=== PATIENT | female | born 1980 | race African-American/Black ===

== ENCOUNTER 2017-04-02 16:15 | Observation (INO) | payer SELFPAY ==
[2017-04-02 18:11] LABS: COLOR PALE YELLOW; LEUKOCYTE ESTERASE,URINE NEGATIVE (NEGATIVE); NITRITE,URINE NEGATIVE (NEGATIVE)
[2017-04-02 18:32] LABS: PHENCYCLIDINE URINE BCH < 6 ng/ml (NEGATIVE); PHENCYCLIDINE URINE BCH NEGATIVE (NEGATIVE); TETRAHYDROCANNABINOL URINE 75 ng/mL (NEGATIVE)
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
== END 2017-04-02 19:21 | disposition home or self-care (01) ==
LOC: FLD 16:15
PROVIDERS: ADMIT Obstetrics & Gynecology; ATTEND Obstetrics & Gynecology
DX: O26.893 Other specified pregnancy related conditions, third trimester (principal); Z3A.38 38 weeks gestation of pregnancy
CPT/HCPCS: 80307; G0378; G0480

== ENCOUNTER 2017-04-11 08:22 | Inpatient (IN) | payer MEDICAID ==
[2017-04-11 10:27] LABS: % IMMATURE GRANULYOCYTES 0.3 % (0.0-1.1); ABSOLUTE IMMATURE GRANULOCYTES 0.02 10^3/uL (0.00-0.10); ADD DIFF? NO; ADD MORPH? NO; ADD SCAN? NO; ATYPICAL LYMPHOCYTE FLAG 0 (0-99); FRAGMENT RBC FLAG 0 (0-99); HEMATOCRIT 32.1 % (38.0-47.0); HEMOGLOBIN 11.2 g/dL (12.6-16.3); LEFT SHIFT FLG 0 (0-99); LIPEMIA HEMOLYSIS FLAG 90 (0-99); MEAN CELL HEMOGLOBIN 28.6 pg (27.9-34.1); MEAN CELL HEMOGLOBIN CONCENTR. 34.9 g/dL (32.4-36.7); MEAN CELL VOLUME 81.9 fL (81.5-99.8); MEAN PLATELET VOLUME 12.5 fL (8.7-11.7); PLATELET CLUMPS FLAG 0 (0-99); PLATELET COUNT 137 10^3/uL (150-400); RED BLOOD CELL COUNT 3.92 10^6/uL (4.18-5.33); RED CELL DISTRIBUTION WIDTH 13.4 % (11.5-15.2)
[2017-04-11 10:59] LABS: PHENCYCLIDINE URINE BCH < 6 ng/ml (NEGATIVE); PHENCYCLIDINE URINE BCH NEGATIVE (NEGATIVE); TETRAHYDROCANNABINOL URINE 52 ng/mL (NEGATIVE)
[2017-04-11] MEDS ORDERED: FLU VACC QS 2017-18 (3YR+)/PF 0.5 ML SYR (FLUARIX QUAD) IM ONE (12:30)
[2017-04-11] MEDS ORDERED: TDAP ADULT 0.5 ML INJ (BOOSTRIX) IM ONE ×2 (14:50→15:08)
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
== END 2017-04-11 21:26 | disposition home or self-care (01) | DRG 780 ==
LOC: FLD 08:22
PROVIDERS: ADMIT Obstetrics & Gynecology; ATTEND Obstetrics & Gynecology
DX: O47.1 False labor at or after 37 completed weeks of gestation (principal); Z23 Encounter for immunization; Z3A.39 39 weeks gestation of pregnancy
CPT/HCPCS: 80307; G0008; G0480

== ENCOUNTER 2017-04-13 14:33 | Observation (INO) | payer MEDICAID | END 2017-04-13 15:20 | disposition home or self-care (01) | LOC: FLD 14:33 | PROVIDERS: ADMIT Obstetrics & Gynecology; ATTEND Obstetrics & Gynecology | DX: O36.8130 Decreased fetal movements, third trimester, not applicable or unspecified (principal); Z3A.00 Weeks of gestation of pregnancy not specified ==

== ENCOUNTER 2017-04-17 22:00 | Inpatient (IN) | payer MEDICAID ==
[2017-04-18 01:47] LABS: COLOR YELLOW; LEUKOCYTE ESTERASE,URINE TRACE (NEGATIVE); NITRITE,URINE NEGATIVE (NEGATIVE)
[2017-04-18] MEDS ORDERED: EPSOM SALT 454 GM TP PRN (01:53)
[2017-04-18] MEDS ORDERED: OXYTOCIN 20 UNIT in LR 1,000 ML IV PRN (01:53)
[2017-04-18] MEDS ORDERED: LR 1,000 ML IV PRN (01:53)
[2017-04-18] MEDS ORDERED: TERBUTALINE SULFATE 1 MG/ML VIAL IV PRN (01:53)
[2017-04-18] MEDS ORDERED: OLIVE OIL 118 ML BTL MISC PRN (01:53)
[2017-04-18 02:17] LABS: MUCUS TRACE /lpf (NONE-1+)
== END 2017-04-18 02:30 | disposition home or self-care (01) | DRG 780 ==
LOC: FLD 22:00 → OBSVTOIN 04-18 01:53
PROVIDERS: ADMIT Obstetrics & Gynecology; ATTEND Obstetrics & Gynecology
DX: O47.1 False labor at or after 37 completed weeks of gestation (principal); O99.333 Smoking (tobacco) complicating pregnancy, third trimester; O09.43 Supervision of pregnancy with grand multiparity, third trimester; Z3A.40 40 weeks gestation of pregnancy
CPT/HCPCS: 80305

== ENCOUNTER 2017-07-03 17:08 | Emergency (ER) | payer MEDICAID ==
[2017-07-03 17:24] VITALS: RESP 16; TEMP 98.2
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
[2017-07-03 19:47] VITALS: BP 126/70; PULSE 69; O2SAT 97
== END 2017-07-03 19:45 | disposition home or self-care (01) ==
DX: S09.90XA Unspecified injury of head, initial encounter (principal); S16.1XXA Strain of muscle, fascia and tendon at neck level, initial encounter; F17.200 Nicotine dependence, unspecified, uncomplicated; V73.6XXA Passenger on bus injured in collision with car, pick-up truck or van in traffic accident, initial encounter; Y92.410 Unspecified street and highway as the place of occurrence of the external cause

== ENCOUNTER 2017-10-17 19:42 | Emergency (ER) | payer SELFPAY ==
[2017-10-17] MEDS ORDERED: HYDROmorphONE/DILAUDID 2 MG/ML INJ IVP ONE (20:04)
[2017-10-17] MEDS ORDERED: KETOROLAC 30 MG/1 ML SDV IVP ONE (20:04)
[2017-10-17] MEDS ORDERED: METOCLOPRAMIDE 10 MG/2 ML VIAL IVP ONE (20:04)
[2017-10-17] MEDS ORDERED: NS 1,000 ML IV ONE (20:04)
[2017-10-17] MEDS ORDERED: DEXAMETHASONE 10 MG/ML VIAL IVP ONE (20:04)
--- NOTE | 2017-10-17 20:07 | EDPHY ---
H & P Stated Complaint: CHRISTIANSON for the last 3 days Time Seen by Provider: 10/17/17 19:58 HPI/ROS: CHIEF COMPLAINT: Migraine HISTORY OF PRESENT ILLNESS: The patient is a 36-year-old female who comes to the emergency department complaining of migraine headache that has been persistent for 3 days. She has had photophobia and seen dark spots. It is holocephalic. No trauma. No fever. She states that migraines are rather frequent for her and that this is typical except it is lasting longer. No neck pain or stiffness. She used to take amitriptyline at home to prevent them became worried about addiction and stopped. REVIEW OF SYSTEMS: Constitutional: denies: chills, fever, recent illness, recent injury EENTM: denies: blurred vision, double vision, nose congestion Respiratory: denies: cough, shortness of breath Cardiac: denies: chest pain, irregular heart rate, lightheadedness, palpitations Gastrointestinal/Abdominal: denies: abdominal pain, diarrhea, nausea, vomiting, blood streaked stools Genitourinary: denies: dysuria, frequency, hematuria, pain Musculoskeletal: denies: joint pain, muscle pain Skin: denies: lesions, rash, jaundice, bruising Neurological: See HPI denies: numbness, paresthesia, tingling, dizziness, weakness Hematologic/Lymphatic: denies: blood clots, easy bleeding, easy bruising Immunologic/allergic: denies: HIV/AIDS, transplant EXAM: GENERAL: Well-appearing, well-nourished and in no acute distress. HEAD: Atraumatic, normocephalic. EYES: Pupils equal round and reactive to light, extraocular movements intact, sclera anicteric, conjunctiva are normal. ENT: TMs normal, nares patent, oropharynx clear without exudates. Moist mucous membranes. NECK: Normal range of motion, supple without lymphadenopathy or JVD. LUNGS: Breath sounds clear to auscultation bilaterally and equal. No wheezes rales or rhonchi. HEART: Regular rate and rhythm without murmurs, rubs or gallops. ABDOMEN: Soft, nontender, normoactive bowel sounds. No guarding, no rebound. No masses appreciated. BACK: No CVA tenderness, no spinal tenderness, step-offs or deformities EXTREMITIES: Normal range of motion, no pitting or edema. No clubbing or cyanosis. NEUROLOGICAL: Cranial nerves II through XII grossly intact. Normal speech, normal gait. 5/5 strength, normal movement in all extremities, normal sensation PSYCH: Normal mood, normal affect. SKIN: Warm, dry, normal turgor, no visible rashes or lesions. Source: Patient Exam Limitations: No limitations - Personal History LMP (Females 10-55): 8-14 Days Ago Current Tetanus/Diphtheria Vaccine: Yes Current Tetanus Diphtheria and Acellular Pertussis (TDAP): Yes - Medical/Surgical History Hx Asthma: Yes Hx Chronic Respiratory Disease: No Hx Diabetes: No Hx Cardiac Disease: No Hx Renal Disease: No Hx Cirrhosis: No Hx Alcoholism: No Hx HIV/AIDS: No Hx Splenectomy or Spleen Trauma: No Other PMH: PTSD. depression and anxiety, left eye surger, cholecystectomy, migraines - Family History Significant Family History: No pertinent family hx - Social History Smoking Status: Current every day smoker Alcohol Use: Sober Drug Use: None Constitutional: Initial Vital Signs Temperature (C) 36.7 C 10/17/17 19:44 Heart Rate 86 10/17/17 19:44 Respiratory Rate 16 10/17/17 19:44 Blood Pressure 125/81 H 10/17/17 19:44 O2 Sat (%) 97 10/17/17 19:44 O2 Delivery Mode Room Air O2 (L/minute) 2 Allergies/Adverse Reactions: codeine Allergy (Verified 10/17/17 19:47) hydrocodone [From Vicodin] Allergy (Verified 10/17/17 19:47) ibuprofen Allergy (Verified 10/17/17 19:47) oxycodone [From Percocet] Allergy (Verified 10/17/17 19:47) Penicillins Allergy (Verified 10/17/17 19:47) promethazine [From Phenergan] Allergy (Verified 10/17/17 19:47) misoprostol Allergy (Uncoded 10/17/17 19:47) Anaphylaxis Home Medications: Medication Instructions Recorded Metoclopramide [Reglan 10 mg tab 10 mg PO BID PRN #10 tab 10/17/17 (RX)] Medical Decision Making ED Course/Re-evaluation: 10:00 p.m. patient is feeling completely better. She is asking for prescription for Reglan as well as note for work. She declines further observation or treatment. We discussed indications for returning. Differential Diagnosis: Partial list of the Differential diagnosis considered include but were not limited to; migraine, tension headache and although unlikely based on the history and physical exam, I also considered trauma, infection, seizure. I discussed these differential diagnoses and the plan with the patient as well as the usual and expected course. The patient understands that the diagnosis is provisional and that in medicine we are not always correct and that further workup is often warranted. Usual and customary warnings were given. All of the patient's questions were answered. The patient was instructed to return to the emergency department should the symptoms at all worsen or return, otherwise to followup with the physician as we discussed. - Data Points Medications Given: Discontinued Medications Dexamethasone (Decadron Injection) 10 mg IVP EDNOW ONE Stop: 10/17/17 20:05 Last Admin: 10/17/17 20:15 Dose: 10 mg Diphenhydramine HCl (Benadryl Injection) 25 mg IVP EDNOW ONE Stop: 10/17/17 20:05 Last Admin: 10/17/17 20:16 Dose: 25 mg Hydromorphone HCl (Dilaudid) 1 mg IVP EDNOW ONE Stop: 10/17/17 20:05 Last Admin: 10/17/17 20:18 Dose: 1 mg Sodium Chloride (Ns) 1,000 mls @ 0 mls/hr IV ONCE ONE; Wide Open PRN Reason: Protocol Stop: 10/17/17 20:05 Last Admin: 10/17/17 20:12 Dose: 1,000 mls Ketorolac Tromethamine (Toradol) 15 mg IVP EDNOW ONE Stop: 10/17/17 20:05 Last Admin: 10/17/17 20:14 Dose: 15 mg Metoclopramide HCl (Reglan Injection) 10 mg IVP EDNOW ONE Stop: 10/17/17 20:05 Last Admin: 10/17/17 20:13 Dose: 10 mg Departure - Departure Disposition: Home, Routine, Self-Care Clinical Impression: Migraine headache Qualifiers: Migraine type: with aura Status migrainosus presence: without status migrainosus Intractability: not intractable Qualified Code(s): G43.109 - Migraine with aura, not intractable, without status migrainosus Condition: Good Instructions: Metoclopramide (By mouth), Migraine Headache (ED) Referrals: NONE *PRIMARY CARE P,. [Primary Care Provider] - As per Instructions Lyle Sánchez MD [[facility] [place] Primary Care Provider] - As per Instructions Stand Alone Forms: Work Excuse Prescriptions: Metoclopramide [Reglan 10 mg tab (RX)] 10 mg PO BID PRN #10 tab PRN Reason: Headache
[2017-10-17] MEDS ORDERED: HYDROmorphONE/DILAUDID 1 MG/ML INJ ONE (20:10)
[2017-10-17 22:13] VITALS: BP 114/62
== END 2017-10-17 22:19 | disposition home or self-care (01) ==
DX: G43.109 Migraine with aura, not intractable, without status migrainosus (principal); E86.9 Volume depletion, unspecified; J45.909 Unspecified asthma, uncomplicated; F17.200 Nicotine dependence, unspecified, uncomplicated
CPT/HCPCS: 96374; J1100; J1170; J1200; J1885; J2765

== ENCOUNTER 2018-07-04 16:32 | Emergency (ER) | payer MEDICAID ==
[2018-07-04 16:40] VITALS: BP 121/83
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
== END 2018-07-04 17:28 | disposition home or self-care (01) ==
DX: S16.1XXA Strain of muscle, fascia and tendon at neck level, initial encounter (principal); G43.909 Migraine, unspecified, not intractable, without status migrainosus; V49.20XA Unspecified car occupant injured in collision with unspecified motor vehicles in nontraffic accident, initial encounter; Y92.481 Parking lot as the place of occurrence of the external cause; Y99.9 Unspecified external cause status; Y93.9 Activity, unspecified